=== PATIENT | female | born 1960 | race African-American/Black ===

== ENCOUNTER 2020-02-19 07:28 | Day surgery (SDC) | payer OTHER ==
[~2020-02-19] VITALS: Ht 160 cm; Wt 102.0 kg
[2020-02-19] VITALS (7 sets, daily range): BP systolic 118–133; BP diastolic 70–84; PULSE 62–73; TEMP 98.1–98.3
[2020-02-19] MEDS ORDERED: NORCO 325 MG-51 TAB PO (10:35)
--- NOTE | 2020-02-19 11:20 | NUR ---
Pt returned via cart to [facility]. VSS-see flowsheet. 4 surgical incisions with bandaids clean, dry and intact noted across abdomen. brought to room to be with pt. Side rails up and call light in reach. Pt given coffee per request.
--- NOTE | 2020-02-19 13:48 | NUR ---
Pt tolerated saltines, coffee and ice chips. Up to void with SBA. Pt reports nausea has improved and she is ready to get dressed for discharge.
--- NOTE | 2020-02-19 14:11 | NUR ---
Discharge teaching completed, pt and spouse verbalized understanding and denied questions or concerns. Taken via wheelchair to private vehicle for dc home with spouse driving.
== END 2020-02-19 14:10 | disposition home or self-care (01) ==
LOC: SDCO 07:28
DX: K80.10 Calculus of gallbladder with chronic cholecystitis without obstruction (principal); K76.89 Other specified diseases of liver; E66.9 Obesity, unspecified; Z68.39 Body mass index [BMI] 39.0-39.9, adult; Z20.828 Contact with and (suspected) exposure to other viral communicable diseases; Z80.3 Family history of malignant neoplasm of breast; Z80.0 Family history of malignant neoplasm of digestive organs; Z90.710 Acquired absence of both cervix and uterus
CPT/HCPCS: J0330; J1100; J2250; J2405; J2550; J2704; J3010; J7120

== ENCOUNTER → 2020-04-20 | Outpatient (CLI) | payer OTHER ==
[~2020-04-20] MED LIST: NORCO 325 MG-51 TAB PO
== END ==
LOC: COL.RAD 12:34
DX: G43.109 Migraine with aura, not intractable, without status migrainosus (principal)